=== PATIENT | female | born 1955 | race Caucasian/White ===

== ENCOUNTER 2017-11-15 07:43 | Day surgery (SDC) | payer BC ==
[2017-11-13 11:04] VITALS: BMI 22.4
[2017-11-15] MEDS ORDERED: PROPOFOL 20 ML ONE ×2 (07:47)
[2017-11-15] MEDS ORDERED: LIDOCAINE HCL/PF 2% SDV 5ML VIAL ONE (07:48)
[2017-11-15 08:59] VITALS: TEMP 97.9
[2017-11-15 09:34] VITALS: BP 120/77; PULSE 85
== END 2017-11-15 09:35 | disposition home or self-care (01) ==
LOC: FASU 07:43
PROVIDERS: ATTEND Internal Medicine Gastroenterology
PROC: 0DJD8ZZ Inspection of Lower Intestinal Tract, Via Natural or Artificial Opening Endoscopic (ICD-10-PCS; principal; 2017-11-15 08:32)
DX: Z86.010 Personal history of colon polyps (principal); K64.8 Other hemorrhoids
CPT/HCPCS: 82962